=== PATIENT | male | born 1945 | race Two or more races ===

== ENCOUNTER 2023-06-01 22:40 | Inpatient (IN) | payer MEDICARE, OTHER ==
[~2023-06-01] VITALS: Ht 165.1 cm; Wt 82.1 kg
[2023-06-01 23:15] LABS: BASOPHILS # (AUTO) 0.1 K/uL (0.0-0.2); BASOPHILS % (AUTO) 0.6 % (0.0-2.0); EOSINOPHILS # (AUTO) 0.1 K/uL (0.0-0.7); EOSINOPHILS % (AUTO) 1.3 % (0.0-6.0); HEMATOCRIT 39 % (39-51); HEMOGLOBIN 13.2 g/dL (13.5-17.5); LYMPHOCYTES # (AUTO) 2.9 K/uL (0.8-4.8); LYMPHOCYTES % (AUTO) 28.7 % (20.0-44.0); MEAN CORPUSCULAR HEMOGLOBIN 31 PG (26.0-33.0); MEAN CORPUSCULAR HGB CONC 34 g/dl (31.0-36.0); MEAN CORPUSCULAR VOLUME 91 fL (80-96); MONOCYTES # (AUTO) 0.7 K/uL (0.1-1.30); NEUTROPHILS # (AUTO) 6.4 K/uL (1.8-8.9); NEUTROPHILS % (AUTO) 62.4 % (43.0-81.0); PLATELET COUNT (AUTO) 243 K/uL (150-450); RED BLOOD CELL COUNT(AUTO) 4.26 MIL/uL (4.5-6.0); RED CELL DISTRIBUTION WIDTH 13.4 % (11.5-15.0); WHITE BLOOD COUNT (AUTO) 10.2 K/uL (4.3-11.0)
[2023-06-01 23:23] LABS: CALCIUM, SERUM 8.5 mg/dL (8.5-10.1); CARBON DIOXIDE 26 mmol/L (21-32); CHLORIDE 101 mmol/L (98-107); CREATININE 1.1 mg/dL (0.6-1.3); GLUCOSE 225 mg/dL (74-106); POTASSIUM 3.5 mmol/L (3.5-5.1); SODIUM SERUM 135 mmol/L (136-145); UREA NITROGEN, BLOOD 19 mg/dL (7-18)
[2023-06-01 23:36] LABS: ALANINE AMINOTRANSFERASE 14 U/L (12-78); ALBUMIN 3.5 g/dL (3.4-5.0); ALKALINE PHOSPHATASE 72 U/L (46-116); ASPARTATE AMINOTRANSFERASE 10 U/L (15-37); BILIRUBIN,TOTAL 0.5 mg/dL (0.2-1.0); NT-PRO BNP 723 pg/mL (0-125); TOTAL PROTEIN, SERUM 6.8 g/dL (6.4-8.2)
[2023-06-02] VITALS (7 sets, daily range): BP systolic 113–166; BP diastolic 64–107; TEMP 97–98.4; O2SAT 93–96
[2023-06-02 00:06] LABS: APPEARANCE,URINE CLEAR (CLEAR); BILIRUBIN,URINE NEGATIVE (NEGATIVE); BLOOD, URINE NEGATIVE Ery/uL (NEGATIVE); COLOR,URINE YELLOW (YELLOW); KETONES,URINE NEGATIVE (NEGATIVE); LEUKOCYTE ESTERASE ,URINE NEGATIVE (NEGATIVE); NITRITE, URINE NEGATIVE (NEGATIVE); PH,URINE 5.5 (5.0-8.0); PROTEIN,URINE NEGATIVE (NEGATIVE); UGLUCOSE 1+ mg/dL (NEGATIVE); UROBILINOGEN,URINE 0.2 EU/dL (0.2)
[2023-06-02 00:07] LABS: ADD URINE CULTURE NO; BACTERIA,URINE None seen /HPF (None Seen); RBC,URINE 0-2 /HPF (0-2); SQUAMOUS EPITHELIAL CELL,UR Rare /HPF (None Seen); WBC,URINE 0-2 /HPF (0-3)
[2023-06-02] MEDS: IV NS 0.9% 1,000 ML IV ONE (00:09)
[2023-06-02] MEDS ORDERED: DEXTROSE 50%-WATER 50 ML DISP.SYRIN IV PRN (00:30)
[2023-06-02 01:00] LABS: AMPHETAMINE, URINE NEGATIVE (NEGATIVE); BARBITURATE, URINE NEGATIVE (NEGATIVE); BENZODIAZEPINE, URINE NEGATIVE (NEGATIVE); CANNABINOID, URINE NEGATIVE (NEGATIVE); COCCAINE, URINE NEGATIVE (NEGATIVE); OPIATE, URINE NEGATIVE (NEGATIVE); PHENCYCLIDINE SCREEN,URINE NEGATIVE (NEGATIVE)
[2023-06-02 01:05] LABS: THYROID STIMULATING HORMONE 2.014 uIU/mL (0.358-3.74)
[2023-06-02] MEDS ORDERED: LORAZEPAM INJ 2 MG/ML VIAL ONE (01:44)
[2023-06-02] MEDS: LORAZEPAM INJ 2 MG/ML VIAL IV ONE (02:00)
[2023-06-02 02:18] LABS: LACTIC ACID REFLEX 1.4 mmol/L (0.4-1.9)
[2023-06-02 02:24] LABS: BILIRUBIN,DIRECT 0.1 mg/dL (0.0-0.2)
[2023-06-02] MEDS: ENOXAPARIN SODIUM 40 MG/0.4 ML DISP.SYRIN SQ SCH (02:32)
[2023-06-02] MEDS: BLOOD SUGAR DIAGNOSTIC 1 EACH STRIP IN SCH (06:31)
[2023-06-02] MEDS: INSULIN REGULAR, HUMAN 100 UNIT/ML 3 ML VIAL SQ PRN (06:33)
[2023-06-02] MEDS: PANTOPRAZOLE 40 MG TABLET.DR PO SCH (08:37)
[2023-06-02] MEDS: ASPIRIN EC 81 MG TABLET.DR PO SCH ×2 (08:37→11:30)
[2023-06-02] MEDS: DOCUSATE SODIUM 100 MG CAPSULE PO SCH (08:37)
[2023-06-02] MEDS ORDERED: BENA10TA74 PO (10:46)
[2023-06-02] MEDS ORDERED: ATOR40TA PO (10:46)
[2023-06-02] MEDS ORDERED: SITA100T PO (10:46)
[2023-06-02] MEDS ORDERED: ASPI-1420 PO (10:46)
[2023-06-02] MEDS ORDERED: ERGO500040 PO (10:46)
[2023-06-02] MEDS ORDERED: CETI10TA14 PO (10:46)
[2023-06-02] MEDS ORDERED: OLME1TAB16 PO (10:46)
[2023-06-02] MEDS ORDERED: ZOLP12.542 PO (10:46)
[2023-06-02] MEDS ORDERED: ARIP2TAB3 PO (10:46)
[2023-06-02] MEDS ORDERED: METO-357 PO (10:46)
[2023-06-02] MEDS ORDERED: DUTA0.5C37 PO (10:46)
[2023-06-02] MEDS ORDERED: IBUP-1953 PO (10:46)
[2023-06-02] MEDS ORDERED: VILA40TA PO (10:46)
[2023-06-02] MEDS ORDERED: TAMS-12 PO (10:46)
[2023-06-02] MEDS ORDERED: CYCL30DR EACHEYE (10:46)
[2023-06-02] MEDS ORDERED: DICL100G26 TP (10:46)
[2023-06-02] MEDS ORDERED: APIX5TAB PO (10:46)
[2023-06-02] MEDS ORDERED: AMIO200T5 PO (10:46)
[2023-06-02] MEDS ORDERED: CLON1TAB12 PO (10:46)
[2023-06-02] MEDS ORDERED: MEMA10TA PO (10:46)
[2023-06-02] MEDS ORDERED: AMLO-212 PO (10:46)
[2023-06-02] MEDS ORDERED: LIDO30AD10 TD (10:46)
[2023-06-02] MEDS ORDERED: clonazePAM 1 MG TABLET PO PRN (11:30)
[2023-06-02] MEDS: AMIODARONE HCL 200 MG TABLET PO SCH (12:20)
[2023-06-02] MEDS: APIXABAN 5 MG TABLET PO SCH (12:21)
[2023-06-02] MEDS: METOPROLOL SUCCINATE 50 MG TAB.SR.24H PO SCH (12:22)
[2023-06-02] MEDS ORDERED: ZOLPIDEM TARTRATE 10 MG TABLET PO PRN (12:30)
[2023-06-02] MEDS: IBUPROFEN 400 MG TABLET PO PRN (15:00)
[2023-06-02] MEDS: AMLODIPINE BESYLATE 5 MG TABLET PO ONE (15:54)
[2023-06-02] MEDS: CYCLOSPORINE EACHEYE SCH (16:25)
[2023-06-02] MEDS: TAMSULOSIN 0.4 MG CAP.SR.24H PO SCH (16:26)
[2023-06-02] MEDS: BENAZEPRIL HCL 20 MG TABLET PO SCH (16:27)
[2023-06-02] MEDS ORDERED: DICLOFENAC SODIUM 2 GM TP SCH (17:00)
[2023-06-02] MEDS ORDERED: IOHEXOL-350 100 ML VIAL IV ONE ×2 (17:19→17:32)
[2023-06-02] MEDS ORDERED: IV NS 0.9% 250 ML IV ONE (17:19)
[2023-06-02] MEDS ORDERED: CT SWABBABLE VALVE TRANS SET 1 EA INFUS.SET MC ONE (17:19)
[2023-06-02] MEDS: SIMVASTATIN 20 MG TABLET PO SCH (21:57)
[2023-06-02] MEDS: MEMANTINE HCL 5 MG TABLET PO SCH (21:57)
[2023-06-03 07:00] VITALS: BP 122/72; TEMP 97.7; O2SAT 94
[2023-06-03 07:51] LABS: BASOPHILS % (AUTO) 0.3 % (0.0-2.0); EOSINOPHILS # (AUTO) 0.1 K/uL (0.0-0.7); EOSINOPHILS % (AUTO) 0.9 % (0.0-6.0); HEMATOCRIT 38 % (39-51); LYMPHOCYTES # (AUTO) 2.2 K/uL (0.8-4.8); LYMPHOCYTES % (AUTO) 21.5 % (20.0-44.0); MEAN CORPUSCULAR HEMOGLOBIN 31 PG (26.0-33.0); MEAN CORPUSCULAR HGB CONC 34 g/dl (31.0-36.0); MEAN CORPUSCULAR VOLUME 90 fL (80-96); MONOCYTES # (AUTO) 0.9 K/uL (0.1-1.30); MONOCYTES % (AUTO) 8.5 % (2.0-12.0); NEUTROPHILS # (AUTO) 7.1 K/uL (1.8-8.9); NEUTROPHILS % (AUTO) 68.8 % (43.0-81.0); PLATELET COUNT (AUTO) 255 K/uL (150-450); RED BLOOD CELL COUNT(AUTO) 4.19 MIL/uL (4.5-6.0); WHITE BLOOD COUNT (AUTO) 10.4 K/uL (4.3-11.0)
[2023-06-03 07:53] LABS: INR 1.09 (0.91-1.10); PARTIAL THROMBOPLASTIN TIME 30.6 SEC (24.3-34.3); PROTHROMBIN TIME 11.5 SECS (9.2-11.1)
[2023-06-03 08:00] LABS: CALCIUM, SERUM 8.6 mg/dL (8.5-10.1); CARBON DIOXIDE 22 mmol/L (21-32); CHLORIDE 101 mmol/L (98-107); CREATININE 0.8 mg/dL (0.6-1.3); GLUCOSE 117 mg/dL (74-106); POTASSIUM 3.6 mmol/L (3.5-5.1); SODIUM SERUM 136 mmol/L (136-145); UREA NITROGEN, BLOOD 12 mg/dL (7-18)
[2023-06-03] MEDS: LIDOCAINE 5% (PATCH) 1 EA PATCH TP SCH (08:27)
[2023-06-03] MEDS: DUTASTERIDE (0.5 MG) 0.5 MG CAPSULE PO SCH (08:28)
[2023-06-03] MEDS: AMLODIPINE BESYLATE 5 MG TABLET PO SCH (08:29)
[2023-06-03] MEDS: cetrizine 10 MG TABLET PO SCH (08:29)
[2023-06-03] MEDS: LOSARTAN POTASSIUM 50 MG TABLET PO SCH (08:29)
[2023-06-03] MEDS: HYDROCHLOROTHIAZIDE 25 MG TABLET PO SCH (08:30)
[2023-06-03] MEDS: LINAGLIPTIN 5 MG TABLET PO SCH (08:30)
[2023-06-03] MEDS: ARIPIPRAZOLE 2 MG TABLET PO SCH (08:30)
[2023-06-03] MEDS: ERGOCALCIFEROL (VITAMIN D 2) 50,000 UNIT CAPSULE PO SCH (08:36)
[2023-06-03] MEDS: VILAZODONE HYDROCHLORIDE 40 MG PO SCH (08:37)
[2023-06-03] MEDS: ATORVASTATIN 40 MG TABLET PO SCH (08:40)
[2023-06-03 08:54] LABS: CHOLESTEROL 237 mg/dL (<200); HDL CHOLESTEROL 52 mg/dL (40-60); LDL 151 mg/dL (0-99); TRIGLYCERIDES 96 mg/dL (30-150)
[2023-06-03 16:00] VITALS: BP 90/73; TEMP 97.3; O2SAT 94
[2023-06-03 21:00] VITALS: BP 110/59; TEMP 97.9; O2SAT 94
[2023-06-04 07:00] VITALS: BP 127/64; TEMP 97.9; O2SAT 94
[2023-06-04 08:56] VITALS: BP 127/69
== END 2023-06-04 14:39 | disposition home health service (06) | DRG 69 ==
LOC: ER 22:42 → TELE 06-02 01:09 → MED 06-03 10:43
PROVIDERS: ADMIT Internal Medicine; ATTEND Internal Medicine
DX: G45.9 Transient cerebral ischemic attack, unspecified (principal); E87.1 Hypo-osmolality and hyponatremia; D68.69 Other thrombophilia; I48.91 Unspecified atrial fibrillation; E11.9 Type 2 diabetes mellitus without complications; E78.5 Hyperlipidemia, unspecified; I10 Essential (primary) hypertension; Z86.73 Personal history of transient ischemic attack (TIA), and cerebral infarction without residual deficits; R26.81 Unsteadiness on feet; R47.81 Slurred speech; R29.703 NIHSS score 3; Z79.84 Long term (current) use of oral hypoglycemic drugs
CPT/HCPCS: 36415; 70450-TC; 70496-TC; 70498-TC; 71045-TC; 80048-TC; 80053-TC; 80061-TC; 81001; 82248-TC; 82962-TC; 83605-TC; 83880; 84443-TC; 84484-TC; 85025-TC; 85652-TC; 85730-TC; 87040-TC; 92507-TC; 92521; 92526; 92611-TC; 93307-TC; 93880-TC; 97110-TC; 97116-TC; 97530-TC; 97535-TC; G0378; G0480; J1650; J1815; J2060; J7050; Q9967

== ENCOUNTER 2024-02-18 10:39 | Inpatient (IN) | payer MEDICARE, OTHER ==
[~2024-02-18] VITALS: Ht 172.7 cm; Wt 68.0 kg
[~2024-02-18 10:39] MED LIST: AMIO200T5 PO; AMLO-212 PO; APIX5TAB PO; ARIP2TAB3 PO; ASPI-1420 PO; ATOR40TA PO; BENA10TA74 PO; CETI10TA14 PO; CLON1TAB12 PO; CYCL30DR EACHEYE; DICL100G26 TP; DUTA0.5C37 PO; ERGO500040 PO; IBUP-1953 PO; LIDO30AD10 TD; MEMA10TA PO; METO-357 PO; OLME1TAB16 PO; SITA100T PO; TAMS-12 PO; VILA40TA PO; ZOLP12.542 PO
[2024-02-18] MEDS ORDERED: MEMA14CA5 PO (11:43)
[2024-02-18] MEDS: IV NS 0.9% 500 ML BAG IV ONE (11:49)
[2024-02-18 11:59] LABS: CALCIUM, SERUM 8.8 mg/dL (8.5-10.1); CARBON DIOXIDE 28 mmol/L (21-32); CHLORIDE 100 mmol/L (98-107); CREATININE 0.8 mg/dL (0.6-1.3); GLUCOSE 149 mg/dL (74-106); POTASSIUM 3.6 mmol/L (3.5-5.1); SODIUM SERUM 136 mmol/L (136-145); UREA NITROGEN, BLOOD 11 mg/dL (7-18)
[2024-02-18 12:04] LABS: INR 1.08 (0.91-1.10); PARTIAL THROMBOPLASTIN TIME 27.4 SEC (24.3-34.3); PROTHROMBIN TIME 11.4 SECS (9.2-11.1)
[2024-02-18] MEDS ORDERED: IOHEXOL-350 100 ML VIAL IV ONE (12:05)
[2024-02-18 12:13] LABS: ALANINE AMINOTRANSFERASE 12 U/L (12-78); ALBUMIN 3.6 g/dL (3.4-5.0); ALKALINE PHOSPHATASE 76 U/L (46-116); ASPARTATE AMINOTRANSFERASE 16 U/L (15-37); BILIRUBIN,DIRECT 0.4 mg/dL (0.0-0.2); BILIRUBIN,TOTAL 2.3 mg/dL (0.2-1.0); NT-PRO BNP 784 pg/mL (0-125); TOTAL PROTEIN, SERUM 7.1 g/dL (6.4-8.2)
[2024-02-18 12:19] LABS: BASOPHILS # (AUTO) 0.1 K/uL (0.0-0.2); BASOPHILS % (AUTO) 0.4 % (0.0-2.0); EOSINOPHILS % (AUTO) 0.2 % (0.0-6.0); HEMATOCRIT 44 % (39-51); HEMOGLOBIN 14.7 g/dL (13.5-17.5); LYMPHOCYTES # (AUTO) 1.4 K/uL (0.8-4.8); MEAN CORPUSCULAR HEMOGLOBIN 31 PG (26.0-33.0); MEAN CORPUSCULAR HGB CONC 34 g/dl (31.0-36.0); MEAN CORPUSCULAR VOLUME 93 fL (80-96); MONOCYTES # (AUTO) 1.3 K/uL (0.1-1.30); MONOCYTES % (AUTO) 9.7 % (2.0-12.0); NEUTROPHILS # (AUTO) 10.8 K/uL (1.8-8.9); NEUTROPHILS % (AUTO) 79.7 % (43.0-81.0); PLATELET COUNT (AUTO) 245 K/uL (150-450); RED BLOOD CELL COUNT(AUTO) 4.71 MIL/uL (4.5-6.0); RED CELL DISTRIBUTION WIDTH 13.2 % (11.5-15.0); WHITE BLOOD COUNT (AUTO) 13.6 K/uL (4.3-11.0)
[2024-02-18 12:34] LABS: APPEARANCE,URINE CLEAR (CLEAR); BILIRUBIN,URINE 1+ (NEGATIVE); BLOOD, URINE NEGATIVE Ery/uL (NEGATIVE); COLOR,URINE YELLOW (YELLOW); KETONES,URINE 3+ mg/dL (NEGATIVE); LEUKOCYTE ESTERASE ,URINE NEGATIVE (NEGATIVE); NITRITE, URINE NEGATIVE (NEGATIVE); PROTEIN,URINE TRACE mg/dl (NEGATIVE); UGLUCOSE NEGATIVE (NEGATIVE); UROBILINOGEN,URINE 0.2 EU/dL (0.2)
[2024-02-18 12:37] LABS: URINE AMORPHOUS URATE Few /HPF (None Seen)
[2024-02-18 12:38] LABS: ADD URINE CULTURE NO; BACTERIA,URINE Few /HPF (None Seen); RBC,URINE 0-2 /HPF (0-2); SQUAMOUS EPITHELIAL CELL,UR None Seen /HPF (None Seen)
[2024-02-18 12:39] LABS: MUCUS,URINE Moderate /LPF (None Seen)
[2024-02-18] MEDS ORDERED: ONDANSETRON HCL/PF 4 MG/2 ML VIAL IVP PRN (15:30)
[2024-02-18] MEDS ORDERED: hydrALAZINE HCL IV 20 MG VIAL IV PRN (15:30)
[2024-02-18] MEDS ORDERED: DEXTROSE 50%-WATER 50 ML DISP.SYRIN IV PRN ×2 (15:30→17:30)
[2024-02-18] MEDS ORDERED: MORPHINE SULFATE INJ 2 MG/ML DISP.SYRIN IV PRN (15:30)
[2024-02-18] MEDS ORDERED: Z GUARD REMEDY 4 OZ OINT TP PRN (15:30)
[2024-02-18] MEDS ORDERED: Medication Not On Formulary EA (Cyclosporine (Restasis) 1 DROP) EACHEYE SCH (17:00)
[2024-02-18] MEDS ORDERED: INSULIN REGULAR, HUMAN 100 UNIT/ML 3 ML VIAL SQ PRN (17:30)
[2024-02-18] MEDS ORDERED: BLOOD SUGAR DIAGNOSTIC 1 EACH STRIP IN SCH (17:30)
[2024-02-18] MEDS: BLOOD SUGAR DIAGNOSTIC 1 EACH STRIP IN SCH (17:30)
[2024-02-18] MEDS: TAMSULOSIN 0.4 MG CAP.SR.24H PO SCH (17:57)
[2024-02-18] MEDS: BENAZEPRIL HCL 10 MG TABLET PO SCH (17:58)
[2024-02-18] MEDS: APIXABAN 5 MG TABLET PO SCH (17:59)
[2024-02-18] MEDS: CEFTRIAXONE 1 G in IV D5W 50 ML IV SCH (18:46)
[2024-02-18 20:00] VITALS: BP 143/86; TEMP 97.9; O2SAT 96
[2024-02-19 07:06] LABS: BASOPHILS % (AUTO) 0.1 % (0.0-2.0); EOSINOPHILS % (AUTO) 0.3 % (0.0-6.0); HEMATOCRIT 40 % (39-51); HEMOGLOBIN 13.5 g/dL (13.5-17.5); LYMPHOCYTES # (AUTO) 1.4 K/uL (0.8-4.8); LYMPHOCYTES % (AUTO) 12.3 % (20.0-44.0); MEAN CORPUSCULAR HEMOGLOBIN 31 PG (26.0-33.0); MEAN CORPUSCULAR HGB CONC 34 g/dl (31.0-36.0); MEAN CORPUSCULAR VOLUME 91 fL (80-96); MONOCYTES # (AUTO) 1.2 K/uL (0.1-1.30); MONOCYTES % (AUTO) 10.1 % (2.0-12.0); NEUTROPHILS % (AUTO) 77.2 % (43.0-81.0); PLATELET COUNT (AUTO) 213 K/uL (150-450); RED BLOOD CELL COUNT(AUTO) 4.35 MIL/uL (4.5-6.0); RED CELL DISTRIBUTION WIDTH 13.3 % (11.5-15.0); WHITE BLOOD COUNT (AUTO) 11.7 K/uL (4.3-11.0)
[2024-02-19 07:22] LABS: ALANINE AMINOTRANSFERASE 12 U/L (12-78); ALBUMIN 3.1 g/dL (3.4-5.0); ALKALINE PHOSPHATASE 66 U/L (46-116); ASPARTATE AMINOTRANSFERASE 13 U/L (15-37); BILIRUBIN,TOTAL 1.9 mg/dL (0.2-1.0); CALCIUM, SERUM 8.3 mg/dL (8.5-10.1); CARBON DIOXIDE 25 mmol/L (21-32); CHLORIDE 103 mmol/L (98-107); CREATININE 0.8 mg/dL (0.6-1.3); GLUCOSE 140 mg/dL (74-106); PHOSPHORUS 3.2 mg/dL (2.5-4.9); POTASSIUM 3.1 mmol/L (3.5-5.1); SODIUM SERUM 138 mmol/L (136-145); TOTAL PROTEIN, SERUM 6.5 g/dL (6.4-8.2); UREA NITROGEN, BLOOD 12 mg/dL (7-18)
[2024-02-19] MEDS: MEMANTINE HCL 5 MG TABLET PO SCH (09:00)
[2024-02-19] MEDS: ATORVASTATIN 40 MG TABLET PO SCH (09:00)
[2024-02-19] MEDS: LOSARTAN POTASSIUM 50 MG TABLET PO SCH (09:00)
[2024-02-19] MEDS: AMLODIPINE BESYLATE 5 MG TABLET PO SCH (09:00)
[2024-02-19] MEDS: AMIODARONE HCL 200 MG TABLET PO SCH (09:00)
[2024-02-19] MEDS: HYDROCHLOROTHIAZIDE 25 MG TABLET PO SCH (09:00)
[2024-02-19] MEDS: DUTASTERIDE (0.5 MG) 0.5 MG CAPSULE PO SCH (09:00)
[2024-02-19] MEDS: ASPIRIN EC 81 MG TABLET.DR PO SCH (09:00)
[2024-02-19] MEDS: POTASSIUM CL. PREMIX PERIPHER. 50 ML IV SCH (14:41)
[2024-02-19] MEDS: ERGOCALCIFEROL (VITAMIN D 2) 50,000 UNIT CAPSULE PO SCH (16:05)
[2024-02-19] MEDS: LIDOCAINE 5% (PATCH) 1 EA PATCH TP SCH (16:16)
[2024-02-19 16:31] LABS: FREE PSA 0.56 ng/mL (0.00-45); PROSTATE SPECIFIC ANTIGEN SCR 6.11 ng/mL (0.00-4.00)
[2024-02-19] MEDS ORDERED: GADOTERATE MEGLUMINE 10 MMOL/20 ML VIAL IV ONE (18:16)
[2024-02-19 20:00] VITALS: BP 120/73; TEMP 98.2; O2SAT 95
[2024-02-19] MEDS: INSULIN REGULAR, HUMAN 100 UNIT/ML 3 ML VIAL SQ PRN (22:34)
[2024-02-20] VITALS: BP 147/79; TEMP 98.1; O2SAT 94
[2024-02-20] MEDS: ACETAMINOPHEN 325 MG TABLET PO PRN (00:49)
[2024-02-20 03:26] VITALS: BP 152/81; TEMP 98.6; O2SAT 95
[2024-02-20 06:51] LABS: CALCIUM, SERUM 8.7 mg/dL (8.5-10.1); CARBON DIOXIDE 26 mmol/L (21-32); CHLORIDE 105 mmol/L (98-107); CREATININE 0.8 mg/dL (0.6-1.3); GLUCOSE 179 mg/dL (74-106); POTASSIUM 3.5 mmol/L (3.5-5.1); SODIUM SERUM 138 mmol/L (136-145); UREA NITROGEN, BLOOD 16 mg/dL (7-18)
[2024-02-20 07:00] VITALS: BP 144/86; TEMP 98.1; O2SAT 96
[2024-02-20] MEDS ORDERED: IOHEXOL-300 100 ML VIAL IV ONE (12:24)
[2024-02-20] MEDS ORDERED: IV NS 0.9% 250 ML IV ONE (12:25)
[2024-02-20 16:00] VITALS: BP 118/79; TEMP 97.5; O2SAT 97
[2024-02-20 20:00] VITALS: BP 108/72; TEMP 97.5; O2SAT 95
[2024-02-21 07:12] LABS: CALCIUM, SERUM 8.7 mg/dL (8.5-10.1); CARBON DIOXIDE 31 mmol/L (21-32); CHLORIDE 103 mmol/L (98-107); CREATININE 0.8 mg/dL (0.6-1.3); GLUCOSE 187 mg/dL (74-106); SODIUM SERUM 138 mmol/L (136-145); UREA NITROGEN, BLOOD 16 mg/dL (7-18)
[2024-02-21 08:06] LABS: IMMUNOGLOBULIN A, SERUM 265 mg/dL (61-437); IMMUNOGLOBULIN G, SERUM 854 mg/dL (603-1613); IMMUNOGLOBULIN M, SERUM 78 mg/dL (15-143)
[2024-02-21 20:00] VITALS: BP 125/51; TEMP 98; O2SAT 100
[2024-02-22 05:12] LABS: AFP, TUMOR MARKER <1.8 ng/mL (0.0-8.4); CARBOHYDRATE AG 19-9 25 U/mL (0-35)
[2024-02-22 07:19] LABS: CALCIUM, SERUM 8.5 mg/dL (8.5-10.1); CARBON DIOXIDE 28 mmol/L (21-32); CHLORIDE 101 mmol/L (98-107); CREATININE 0.7 mg/dL (0.6-1.3); GLUCOSE 180 mg/dL (74-106); POTASSIUM 3.6 mmol/L (3.5-5.1); SODIUM SERUM 137 mmol/L (136-145); UREA NITROGEN, BLOOD 16 mg/dL (7-18)
[2024-02-22 08:00] VITALS: BP 131/74; TEMP 98.2; O2SAT 99
[2024-02-22 10:07] LABS: *SPE A/G RATIO 1.1 (0.7-1.7); *SPE ALBUMIN 3.3 g/dL (2.9-4.4); *SPE ALPHA-1-GLOBULIN 0.3 g/dL (0.0-0.4); *SPE ALPHA-2-GLOBULIN 0.7 g/dL (0.4-1.0); *SPE GLOBULIN, TOTAL 2.9 g/dL (2.2-3.9); *SPE M-SPIKE Not Observed g/dL (Not Observed); *SPE PROTEIN TOTAL 6.2 g/dL (6.0-8.5); *SPEGAMMA GLOBULIN 0.8 g/dL (0.4-1.8)
[2024-02-22 15:35] VITALS: BP 115/70; TEMP 98.6; O2SAT 96
[2024-02-22 20:00] VITALS: BP 106/54; TEMP 98.2; O2SAT 96
[2024-02-23 07:18] LABS: BASOPHILS % (AUTO) 0.3 % (0.0-2.0); EOSINOPHILS # (AUTO) 0.2 K/uL (0.0-0.7); EOSINOPHILS % (AUTO) 2.8 % (0.0-6.0); HEMATOCRIT 38 % (39-51); HEMOGLOBIN 12.7 g/dL (13.5-17.5); LYMPHOCYTES % (AUTO) 23.4 % (20.0-44.0); MEAN CORPUSCULAR HEMOGLOBIN 31 PG (26.0-33.0); MEAN CORPUSCULAR HGB CONC 34 g/dl (31.0-36.0); MEAN CORPUSCULAR VOLUME 91 fL (80-96); MONOCYTES # (AUTO) 0.7 K/uL (0.1-1.30); MONOCYTES % (AUTO) 8.3 % (2.0-12.0); NEUTROPHILS # (AUTO) 5.6 K/uL (1.8-8.9); NEUTROPHILS % (AUTO) 65.2 % (43.0-81.0); PLATELET COUNT (AUTO) 258 K/uL (150-450); RED BLOOD CELL COUNT(AUTO) 4.11 MIL/uL (4.5-6.0); RED CELL DISTRIBUTION WIDTH 12.9 % (11.5-15.0); WHITE BLOOD COUNT (AUTO) 8.6 K/uL (4.3-11.0)
[2024-02-23 07:37] LABS: CALCIUM, SERUM 8.4 mg/dL (8.5-10.1); CARBON DIOXIDE 27 mmol/L (21-32); CHLORIDE 102 mmol/L (98-107); CREATININE 0.8 mg/dL (0.6-1.3); GLUCOSE 147 mg/dL (74-106); POTASSIUM 3.7 mmol/L (3.5-5.1); SODIUM SERUM 137 mmol/L (136-145); UREA NITROGEN, BLOOD 18 mg/dL (7-18)
[2024-02-23 08:00] VITALS: BP 118/78; TEMP 97.5; O2SAT 96
[2024-02-23 08:53] VITALS: BP 118/78
== END 2024-02-23 14:45 | DRG 844 ==
LOC: ER 10:42 → TELE 17:24 → MED 02-20 09:27
PROVIDERS: ADMIT Internal Medicine; ATTEND Internal Medicine
DX: C80.1 Malignant (primary) neoplasm, unspecified (principal); I48.20 Chronic atrial fibrillation, unspecified; K86.2 Cyst of pancreas; N39.0 Urinary tract infection, site not specified; R17 Unspecified jaundice; C78.01 Secondary malignant neoplasm of right lung; C78.02 Secondary malignant neoplasm of left lung; I48.91 Unspecified atrial fibrillation; N40.0 Benign prostatic hyperplasia without lower urinary tract symptoms; E78.5 Hyperlipidemia, unspecified; R91.8 Other nonspecific abnormal finding of lung field; E11.9 Type 2 diabetes mellitus without complications; I69.398 Other sequelae of cerebral infarction; G93.89 Other specified disorders of brain; N20.0 Calculus of kidney; K40.90 Unilateral inguinal hernia, without obstruction or gangrene, not specified as recurrent; I11.9 Hypertensive heart disease without heart failure; Z79.84 Long term (current) use of oral hypoglycemic drugs; Z79.01 Long term (current) use of anticoagulants
CPT/HCPCS: 36415; 70450-TC; 70496-TC; 70498-TC; 71045-TC; 71250-TC; 71260-TC; 72125-TC; 74183; 80048-TC; 80053-TC; 80076-TC; 81001; 82105; 82378; 82784; 82962-TC; 83615-TC; 83735-TC; 83880; 84100-TC; 84153-TC; 84154-TC; 84155; 84165; 84484-TC; 85025-TC; 85730-TC; 86301; 86334; 87081-TC; 97110-TC; 97116-TC; 97530-TC; 97535-TC; A4223; A9575; G0378; J0696; J1815; J3480; J7040; J7050; J7060; Q9967

== ENCOUNTER 2024-09-22 02:21 | Inpatient (IN) | payer MEDICARE, OTHER ==
[~2024-09-22] VITALS: Ht 172.7 cm; Wt 79.4 kg
[~2024-09-22 02:21] MED LIST changes: -ARIP2TAB3 PO; -CETI10TA14 PO; -CLON1TAB12 PO; -MEMA10TA PO; +MEMA14CA5 PO; -METO-357 PO; -SITA100T PO; -VILA40TA PO; -ZOLP12.542 PO
[2024-09-22 03:13] LABS: BASOPHILS % (AUTO) 0.4 % (0.0-2.0); EOSINOPHILS # (AUTO) 0.3 K/uL (0.0-0.7); EOSINOPHILS % (AUTO) 3.2 % (0.0-6.0); HEMATOCRIT 34 % (39-51); HEMOGLOBIN 11.6 g/dL (13.5-17.5); LYMPHOCYTES # (AUTO) 2.5 K/uL (0.8-4.8); LYMPHOCYTES % (AUTO) 28.4 % (20.0-44.0); MEAN CORPUSCULAR HEMOGLOBIN 31 PG (26.0-33.0); MEAN CORPUSCULAR HGB CONC 34 g/dl (31.0-36.0); MEAN CORPUSCULAR VOLUME 90 fL (80-96); MONOCYTES # (AUTO) 0.7 K/uL (0.1-1.30); MONOCYTES % (AUTO) 8.6 % (2.0-12.0); NEUTROPHILS # (AUTO) 5.1 K/uL (1.8-8.9); NEUTROPHILS % (AUTO) 59.4 % (43.0-81.0); PLATELET COUNT (AUTO) 277 K/uL (150-450); RED BLOOD CELL COUNT(AUTO) 3.77 MIL/uL (4.5-6.0); RED CELL DISTRIBUTION WIDTH 13.5 % (11.5-15.0); WHITE BLOOD COUNT (AUTO) 8.7 K/uL (4.3-11.0)
[2024-09-22 03:22] LABS: CALCIUM, SERUM 8.5 mg/dL (8.5-10.1); CARBON DIOXIDE 33 mmol/L (21-32); CHLORIDE 103 mmol/L (98-107); CREATININE 0.9 mg/dL (0.6-1.3); GLUCOSE 145 mg/dL (74-106); POTASSIUM 3.8 mmol/L (3.5-5.1); SODIUM SERUM 139 mmol/L (136-145); UREA NITROGEN, BLOOD 21 mg/dL (7-18)
[2024-09-22 03:23] LABS: SERUM AMMONIA 14 umol/L (11-32)
[2024-09-22 03:27] LABS: INR 1.03 (0.91-1.10); PARTIAL THROMBOPLASTIN TIME 28.5 SEC (24.3-34.3); PROTHROMBIN TIME 10.9 SECS (9.2-11.1)
[2024-09-22 03:28] LABS: ALANINE AMINOTRANSFERASE 14 U/L (12-78); ALKALINE PHOSPHATASE 94 U/L (46-116); ASPARTATE AMINOTRANSFERASE 14 U/L (15-37); BILIRUBIN,DIRECT 0.1 mg/dL (0.0-0.2); BILIRUBIN,TOTAL 0.4 mg/dL (0.2-1.0); TOTAL PROTEIN, SERUM 6.6 g/dL (6.4-8.2)
[2024-09-22 03:30] LABS: LACTIC ACID 0.9 mmol/L (0.4-2.0)
[2024-09-22 03:44] LABS: ACETAMINOPHEN <10 ug/ml (10-30); ALCOHOL, BLOOD < 3 mg/dL (0-10); SALICYLATE 1.2 mg/dL (2.8-20.0)
[2024-09-22 04:12] LABS: ADD URINE CULTURE YES; APPEARANCE,URINE CLEAR (CLEAR); BACTERIA,URINE Rare /HPF (None Seen); BILIRUBIN,URINE NEGATIVE (NEGATIVE); BLOOD, URINE TRACE-INTA Ery/uL (NEGATIVE); COLOR,URINE YELLOW (YELLOW); KETONES,URINE NEGATIVE (NEGATIVE); LEUKOCYTE ESTERASE ,URINE 1+ (NEGATIVE); NITRITE, URINE NEGATIVE (NEGATIVE); PROTEIN,URINE NEGATIVE (NEGATIVE); SQUAMOUS EPITHELIAL CELL,UR Few /HPF (None Seen); UGLUCOSE NEGATIVE (NEGATIVE); UROBILINOGEN,URINE 0.2 EU/dL (0.2)
[2024-09-22 04:30] LABS: AMPHETAMINE, URINE NEGATIVE (NEGATIVE); BARBITURATE, URINE NEGATIVE (NEGATIVE); BENZODIAZEPINE, URINE NEGATIVE (NEGATIVE); CANNABINOID, URINE NEGATIVE (NEGATIVE); COCCAINE, URINE NEGATIVE (NEGATIVE); PHENCYCLIDINE SCREEN,URINE NEGATIVE (NEGATIVE)
[2024-09-22 04:31] LABS: OPIATE, URINE POSITIVE (NEGATIVE)
[2024-09-22] MEDS: CEFTRIAXONE 1GM BAG (ER ONLY) 1 GM/50 ML PIGGYBACK IV ONE (05:30)
[2024-09-22] MEDS ORDERED: Z GUARD REMEDY 4 OZ OINT TP PRN (05:30)
[2024-09-22] MEDS ORDERED: MAG HYDROX/AL HYDROX/SIMETH 30 ML UDC PO PRN (05:30)
[2024-09-22] MEDS ORDERED: MAGNESIUM HYDROXIDE 30 ML UDC PO PRN (05:30)
[2024-09-22] MEDS ORDERED: ACETAMINOPHEN 325 MG TABLET PO PRN (05:30)
[2024-09-22] MEDS ORDERED: ONDANSETRON HCL/PF 4 MG/2 ML VIAL IVP PRN (05:30)
[2024-09-22] MEDS ORDERED: CEFTRIAXONE 1GM BAG (ER ONLY) 50 ML IV ONE (06:25)
[2024-09-22 08:00] VITALS: BP 135/96; TEMP 97.5; O2SAT 97
[2024-09-22 08:15] VITALS: BP 135/96; TEMP 97.5; O2SAT 97
[2024-09-22] MEDS ORDERED: METF-440 PO (08:48)
[2024-09-22] MEDS ORDERED: DEXTROSE 50%-WATER 50 ML DISP.SYRIN IV PRN (09:00)
[2024-09-22] MEDS: TAMSULOSIN 0.4 MG CAP.SR.24H PO SCH (09:26)
[2024-09-22] MEDS: ATORVASTATIN 40 MG TABLET PO SCH (09:26)
[2024-09-22] MEDS: PANTOPRAZOLE 40 MG VIAL IV SCH (09:26)
[2024-09-22] MEDS: APIXABAN 5 MG TABLET PO SCH (09:26)
[2024-09-22] MEDS: AMLODIPINE BESYLATE 5 MG TABLET PO SCH (09:27)
[2024-09-22] MEDS: LOSARTAN POTASSIUM 50 MG TABLET PO SCH (09:32)
[2024-09-22] MEDS: HYDROCHLOROTHIAZIDE 25 MG TABLET PO SCH (09:33)
[2024-09-22] MEDS: ASPIRIN EC 81 MG TABLET.DR PO SCH (09:34)
[2024-09-22 11:30] VITALS: BP 149/96; TEMP 98.4; O2SAT 96
[2024-09-22] MEDS: INSULIN REGULAR, HUMAN 100 UNIT/ML 3 ML VIAL SQ PRN (11:50)
[2024-09-22] MEDS: BLOOD SUGAR DIAGNOSTIC 1 EACH STRIP IN SCH (11:51)
[2024-09-22] MEDS ORDERED: IOHEXOL-350 100 ML VIAL IV ONE (13:28)
[2024-09-22] MEDS ORDERED: IV NS 0.9% 250 ML IV ONE (13:30)
[2024-09-22 14:00] VITALS: BP 141/87; TEMP 97.7; O2SAT 96
[2024-09-22 20:00] VITALS: BP 133/86; TEMP 97.5; O2SAT 96
[2024-09-22 21:38] LABS: SERUM AMMONIA 14 umol/L (11-32)
[2024-09-22 21:41] LABS: CHOLESTEROL 326 mg/dL (<200); HDL CHOLESTEROL 77 mg/dL (40-60); LDL 150 mg/dL (0-99); TRIGLYCERIDES 104 mg/dL (30-150)
[2024-09-23] VITALS (9 sets, daily range): BP systolic 114–129; BP diastolic 73–82; TEMP 97.9–98.4; O2SAT 95–96
[2024-09-23] MEDS: CEFTRIAXONE 1 G in IV D5W 50 ML IV SCH (05:04)
[2024-09-23 07:22] LABS: BASOPHILS % (AUTO) 0.3 % (0.0-2.0); EOSINOPHILS # (AUTO) 0.1 K/uL (0.0-0.7); EOSINOPHILS % (AUTO) 0.8 % (0.0-6.0); HEMATOCRIT 34 % (39-51); HEMOGLOBIN 11.3 g/dL (13.5-17.5); LYMPHOCYTES # (AUTO) 1.8 K/uL (0.8-4.8); MEAN CORPUSCULAR HEMOGLOBIN 30 PG (26.0-33.0); MEAN CORPUSCULAR HGB CONC 34 g/dl (31.0-36.0); MEAN CORPUSCULAR VOLUME 90 fL (80-96); MONOCYTES # (AUTO) 0.7 K/uL (0.1-1.30); MONOCYTES % (AUTO) 7.2 % (2.0-12.0); NEUTROPHILS # (AUTO) 7.3 K/uL (1.8-8.9); NEUTROPHILS % (AUTO) 73.7 % (43.0-81.0); PLATELET COUNT (AUTO) 256 K/uL (150-450); RED BLOOD CELL COUNT(AUTO) 3.74 MIL/uL (4.5-6.0); RED CELL DISTRIBUTION WIDTH 13.3 % (11.5-15.0); WHITE BLOOD COUNT (AUTO) 9.9 K/uL (4.3-11.0)
[2024-09-23 07:55] LABS: CALCIUM, SERUM 8.7 mg/dL (8.5-10.1); CREATININE 0.9 mg/dL (0.6-1.3); MAGNESIUM 1.9 mg/dL (1.8-2.4); PHOSPHORUS 3.2 mg/dL (2.5-4.9); POTASSIUM 3.7 mmol/L (3.5-5.1)
[2024-09-23] MEDS: PANTOPRAZOLE 40 MG TABLET.DR PO SCH (09:09)
[2024-09-24 10:48] VITALS: BP 129/85; TEMP 97.9; O2SAT 97
== END 2024-09-24 15:45 | disposition home or self-care (01) | DRG 689 ==
LOC: ER 02:25 → TELE IN 06:57 → TELE 07:33 → MED 09-23 18:42
PROVIDERS: ADMIT Nurse Practitioner Acute Care; ATTEND Nurse Practitioner Acute Care
DX: N39.0 Urinary tract infection, site not specified (principal); G92.8 Other toxic encephalopathy; I48.20 Chronic atrial fibrillation, unspecified; E44.1 Mild protein-calorie malnutrition; E88.09 Other disorders of plasma-protein metabolism, not elsewhere classified; E78.5 Hyperlipidemia, unspecified; E11.9 Type 2 diabetes mellitus without complications; I10 Essential (primary) hypertension; J32.0 Chronic maxillary sinusitis; N40.1 Benign prostatic hyperplasia with lower urinary tract symptoms; Z86.73 Personal history of transient ischemic attack (TIA), and cerebral infarction without residual deficits; Z79.01 Long term (current) use of anticoagulants; Z79.84 Long term (current) use of oral hypoglycemic drugs; Z68.26 Body mass index [BMI] 26.0-26.9, adult; B96.89 Other specified bacterial agents as the cause of diseases classified elsewhere; R82.5 Elevated urine levels of drugs, medicaments and biological substances
CPT/HCPCS: 36415; 70450-TC; 70496-TC; 70498-TC; 71045-TC; 80048-TC; 80061-TC; 80076-TC; 81001; 82140-TC; 82962-TC; 83605-TC; 83735-TC; 84100-TC; 84484-TC; 85025-TC; 85730-TC; 87040-TC; 87086-TC; 92526; 92611-TC; 97110-TC; 97116-TC; 97530-TC; 97535-TC; A4223; G0378; G0480; J0696; J1815; J2470; J7050; J7060; Q9967